=== PATIENT | female | born 1995 | race Caucasian/White ===

== ENCOUNTER 2018-10-22 15:38 | Emergency (ER) | payer OTHER ==
[2018-10-22 15:51] VITALS: BP 116/80
[2018-10-22] MEDS ORDERED: Ondansetron ODT TAB* 4 MG PO ONE (16:37)
[2018-10-22] MEDS ORDERED: Pantoprazole TAB * 40 MG TAB PO ONE (16:37)
[2018-10-22] MEDS ORDERED: NS 0.9% 1000 ML** 1,000 ML IV SCH (16:45)
--- NOTE | 2018-10-22 16:48 | UC ---
Abdominal Pain Female HPI - HPI Summary HPI Summary: 23 y/o female with no PMH no medication presents with diarrhea- watery stools starting night occurring every 30-60 minutes. On Monday took an Immodium tablet, no diarrhea since. Notes constant nausea and increased epigastric pain with eating food. Vomited once monday. no blood/ mucous in stools. no fever, + chills. no other feeling ill. + flatus no ETOH use, can not think of any new foods/ cause of food poisoning. + lightheaded - History of Current Complaint Chief Complaint: UCGI Stated Complaint: DIARRHEA Time Seen by Provider: 10/22/18 16:17 Hx Obtained From: Patient Hx Last Menstrual Period: [id number] ?: No Onset/Duration: Sudden Onset, Lasting Days Severity Initially: Moderate Severity Currently: Moderate Pain Intensity: 6 Pain Scale Used: 0-10 Numeric Location: Epigastric Radiates: No Character: Cramping, Sharp Aggravating Factor(s): Food Associated Signs and Symptoms: Positive: Decreased Appetite, Nausea, Vomiting, Diarrhea. Negative: Fever, Constipation, Blood in Stool Allergies/Adverse Reactions: Allergies Allergy/AdvReac Type Severity Reaction Status Date / Time No Known Allergies Allergy Verified 10/22/18 15:51 Home Medications: Home Medications Acetaminophen TAB* [Tylenol TAB*] 975 mg PO Q6H PRN 10/22/18 [History Confirmed 10/22/18] Ibuprofen TAB* [Motrin TAB* 600 MG] 600 mg PO Q6H PRN 10/22/18 [History Confirmed 10/22/18] Loperamide CAP* [Imodium CAP*] 2 mg PO Q4H PRN 10/22/18 [History Confirmed 10/22] PMH/Surg Hx/FS Hx/Imm Hx Previously Healthy: Yes - Surgical History Surgical History: None - Social History Alcohol Use: Occasionally Substance Use Type: None Smoking Status (MU): Never Smoked Tobacco Review of Systems All Other Systems Reviewed And Are Negative: Yes Constitutional: Positive: Negative Respiratory: Positive: Negative Gastrointestinal: Positive: Abdominal Pain, Vomiting, Diarrhea, Nausea Is Patient Immunocompromised?: No Physical Exam Triage Information Reviewed: Yes Appearance: Well-Appearing, No Pain Distress, Well-Nourished Vital Signs: Initial Vital Signs Temp 98.1 F 10/22/18 15:45 Pulse 91 10/22/18 15:45 Resp 16 10/22/18 15:45 BP 116/80 10/22/18 15:45 Pulse Ox 100 10/22/18 15:45 Vital Signs Reviewed: Yes Eyes: Positive: Conjunctiva Clear Abdomen Description: Positive: No Organomegaly, Soft, Other: - TTP over epigastric area and slight umbilical.. Negative: CVA Tenderness (R), CVA Tenderness (L), Distended, Guarding, Hepatomegaly, McBurney's Point Tenderness, Peritoneal Signs, Splenomegaly Bowel Sounds: Positive: Present - normoactive, Other: Musculoskeletal Exam: Normal Psychological Exam: Normal Skin Exam: Normal Abd Pain Female Course/Dx - Course Course Of Treatment: IVF, zofran, protonix. unable to give stool sample. symptoms improved with zofran, IVF, f/u at [facility] - Differential Dx/Diagnosis Differential Diagnosis: Diverticulitis Provider Diagnosis: Diarrhea Discharge - Sign-Out/Discharge Documenting (check all that apply): Patient Departure All imaging exams completed and their final reports reviewed: No Studies - Discharge Plan Condition: Good Disposition: HOME Prescriptions: Ondansetron ODT TAB* [Zofran 4 MG Odt TAB*] 4 mg PO Q6H PRN #10 tab.odt PRN Reason: nausea, vomiting Pantoprazole TAB * [Protonix TAB*] 40 mg PO DAILY #20 tab Patient Education Materials: Dehydration (ED), Acute Diarrhea (ED) Referrals: No Primary Care Phys,NOPCP [Primary Care Provider] - Additional Instructions: - Continue to drink as much as possible - Protonix to help with stomach upset - Zofran to help with nausea - REturn o rgo to ER with worsening abdominal pain, vomiting, lightheadedness, or bloody stools - Billing Disposition and Condition Condition: GOOD Disposition: Home
== END 2018-10-22 18:17 | disposition home or self-care (01) ==
LOC: UCEAST 15:38
DX: R19.7 Diarrhea, unspecified (principal); R10.13 Epigastric pain; R11.2 Nausea with vomiting, unspecified; R63.0 Anorexia
CPT/HCPCS: 96360; 99202; A9270-GY; G0463